=== PATIENT | female | born 1995 | race Caucasian/White ===

== ENCOUNTER 2018-11-24 05:52 | Inpatient (IN) | payer OTHER ==
[~2018-11-24] VITALS: Ht 157.5 cm; Wt 84.0 kg
[2018-11-24] MEDS ORDERED: VENTOLIN HFA18 GM INH (07:00)
[2018-11-24] MEDS ORDERED: PRENATAL VITAM1 EACH PO (07:00)
--- NOTE | 2018-11-24 10:48 | PR ---
[facility] [address] [place], [place] [address] Signed Progress Notes IP Datetime Report Generated by CPN: 11/24/2018 10:47 PROGRESS NOTES: [id number] Impression: Normal progression of labor Procedures: Artificial ROM; Sterile Vag Exam Plan: Continue present management Informed Consent Obtain: Vaginal Delivery; Induction of Labor; Risks, Benefits and Alternatives Discussed VITAL SIGNS: [id number] Vital Signs: Reviewed; Within Normal Limits EXAM: [id number] Dilatation: 2.5 Effacement: 75 Station: -2 Uterine Contractions: q 1 to 3 min MEMBRANES: [id number] Membrane Status: Intact ROM Note: AROM with mod clear fluid. Comments: Progressing. Will continue. Fetus A: [id number] FHR Baseline: 140 Variability: Moderate 6-25bpm Accelerations: 10X10 Decelerations: Late FHR Category: Category II Presentation: Vertex Comments on Fetus A: overall reassuring with occ late decel. Will continue close observation. Fetus B: [id number] Signing Physician: Jessi Doherty MD Copies: ~ *Electronically Signed* 11/24/18 1047 JESSI DOHERTY MD PATIENT NAME: NYDIA SINHA PROGRESS NOTE DATE OF : 95 PHYSICIAN: JESSI DOHERTY MD RPT #: [id number] REPORT IS CONFIDENTIAL AND NOT TO BE RELEASED WITHOUT AUTHORIZATION
--- NOTE | 2018-11-25 08:29 | PR ---
[facility] [address] [facility] [facility] [place], [place] [address] Signed PP Progress Notes Datetime Report Generated by CPN: 11/25/2018 08:28 SUBJECTIVE: [id number] Pain: Within normal limits Vital Signs: [id number] Vital Signs: Reviewed; Within Normal Limits EXAM: [id number] Cardiovascular: Not Done Respiratory: Not Done Abdomen/Uterus: Abnormal Lochia: Normal Vulva/Perineum: Not Done Breasts: Not Done CVA Tenderness: Not Done Extremities: Normal Incision: Not Applicable Progress: Normal Exam Comments: Fundus firm, NT @ U-1. H/H 9.7/28.6, WBC 13.1, plat 239k IMPRESSION/PLAN/PROCEDURES: [id number] Impression: Normal progression Plan: Continue present management Progress Notes: Doing well. Will continue current management. Signing Physician: Jessi Doherty MD Copies: ~ *Electronically Signed* 11/25/18827 JESSI DOHERTY MD PATIENT NAME: NYDIA SINHA PROGRESS NOTE DATE OF : 95 PHYSICIAN: JESSI DOHERTY MD RPT #: [id number] REPORT IS CONFIDENTIAL AND NOT TO BE RELEASED WITHOUT AUTHORIZATION
--- NOTE | 2018-11-26 08:21 | PR ---
[facility] [address] [facility] [place] [address] Signed PP Progress Notes Datetime Report Generated by CPN: 11/26/2018 08:21 SUBJECTIVE: [id number] Pain: Within normal limits Vital Signs: [id number] Vital Signs: Reviewed; Within Normal Limits EXAM: [id number] Cardiovascular: Not Done Respiratory: Not Done Abdomen/Uterus: Abnormal Lochia: Normal Vulva/Perineum: Not Done Breasts: Not Done CVA Tenderness: Not Done Extremities: Normal Incision: Not Applicable Progress: Normal Exam Comments: Fundus firm, NT @ U-1. IMPRESSION/PLAN/PROCEDURES: [id number] Impression: Normal progression Plan: Discharge Procedures: None Progress Notes: Doing well. She is ready for D/C. Signing Physician: Jessi Doherty MD Copies: ~ *Electronically Signed* 11/26/18820 JESSI DOHERTY MD PATIENT NAME: NYDIA SINHA PROGRESS NOTE DATE OF : 95 PHYSICIAN: JESSI DOHERTY MD RPT #: [id number] REPORT IS CONFIDENTIAL AND NOT TO BE RELEASED WITHOUT AUTHORIZATION
== END 2018-11-26 15:40 | disposition home or self-care (01) | DRG 807 ==
LOC: FBC 05:52
PROVIDERS: ADMIT Obstetrics & Gynecology
PROC: 10E0XZZ Delivery of Products of Conception, External Approach (ICD-10-PCS; principal; 2018-11-24)
PROC: 10907ZC Drainage of Amniotic Fluid, Therapeutic from Products of Conception, Via Natural or Artificial Opening (ICD-10-PCS; 2018-11-24)
PROC: 3E0P7VZ Introduction of Hormone into Female Reproductive, Via Natural or Artificial Opening (ICD-10-PCS; 2018-11-24)
PROC: 00HU33Z Insertion of Infusion Device into Spinal Canal, Percutaneous Approach (ICD-10-PCS; 2018-11-24)
PROC: 3E0R3BZ Introduction of Anesthetic Agent into Spinal Canal, Percutaneous Approach (ICD-10-PCS; 2018-11-24)
DX: O66.0 Obstructed labor due to shoulder dystocia (principal); Z37.0 Single live birth; Z3A.39 39 weeks gestation of pregnancy; O76 Abnormality in fetal heart rate and rhythm complicating labor and delivery; O99.824 Streptococcus B carrier state complicating childbirth; O99.52 Diseases of the respiratory system complicating childbirth; J30.9 Allergic rhinitis, unspecified; Z88.0 Allergy status to penicillin; Z87.891 Personal history of nicotine dependence; Z79.899 Other long term (current) drug therapy; Z86.59 Personal history of other mental and behavioral disorders
CPT/HCPCS: 01960; 36415; 82803; 85027; J0690; J2590